=== PATIENT | male | born 1990 | race Caucasian/White ===

== ENCOUNTER → 2017-01-17 | Outpatient (CLI) | payer OTHER ==
[~2017-01-17] MED LIST: CLOZ100T; CLOZ100T PO; CLR5 PO; FLUO40CA8 PO; HALO2TAB PO; LAMO200T38 PO; MINO1CAP25 PO; SNG10 PO
[2017-01-17 14:38] LABS: CHOLESTEROL/HDL RATIO 5.3; THYROID STIMULATING HORMONE 0.899 uIu/ml (0.300-4.500)
== END | disposition home or self-care (01) ==
LOC: C.LAB 12:07
PROVIDERS: ATTEND Psychiatry & Neurology Psychiatry
DX: Z51.81 Encounter for therapeutic drug level monitoring (principal); Z79.899 Other long term (current) drug therapy